=== PATIENT | female | born 1995 | race Caucasian/White ===

== ENCOUNTER 2024-08-21 09:05 | Emergency (ER) | payer OTHER ==
[~2024-08-21] VITALS: Ht 170.2 cm; Wt 76.9 kg
[2024-08-21 09:50] LABS: BASO # 0.1 10^3/uL (0.0-0.2); BASO % 0.8 % (0.0-1.0); EOS # 0.2 10^3/uL (0.0-0.5); EOS % 3.7 % (0.0-3.0); HEMATOCRIT 40.8 % (36.0-47.0); HEMOGLOBIN 13.8 g/dl (12.0-15.5); LYMPH # 1.8 10^3/uL (1.5-5.0); LYMPH % 29.7 % (24.0-44.0); MEAN CORPUSCULAR HEMOGLOBIN 30.7 pg (27.0-33.0); MEAN CORPUSCULAR HGB CONC 33.8 g/dl (32.0-36.5); MEAN CORPUSCULAR VOLUME 90.9 fl (80.0-96.0); MONO # 0.5 10^3/uL (0.0-0.8); MONO % 8.4 % (2.0-8.0); NEUTROPHILS # 3.5 10^3/uL (1.5-8.5); NEUTROPHILS % 57.1 % (36.0-66.0); PLATELET COUNT, AUTOMATED 210 10^3/uL (150-450); RED BLOOD COUNT 4.49 10^6/uL (4.00-5.40); WHITE BLOOD COUNT 6.2 10^3/uL (4.0-10.0)
[2024-08-21 10:13] LABS: ALBUMIN 4.2 G/DL (3.2-5.2); ALKALINE PHOSPHATASE 46 U/L (35-104); ALT/SGPT 49 U/L (7.0-40); AST/SGOT 31 U/L (<34); BILIRUBIN,DIRECT 0.2 MG/DL (<0.4); BILIRUBIN,TOTAL 0.6 MG/DL (0.3-1.2); BLOOD UREA NITROGEN 19 MG/DL (9-23); CALCIUM LEVEL 9.5 MG/DL (8.5-10.1); CARBON DIOXIDE LEVEL 28 MMOL/L (20-31); CHLORIDE LEVEL 107 MMOL/L (98-107); CREATININE FOR GFR 0.84 MG/DL (0.55-1.30); GLOMERULAR FILTRATION RATE > 90.0 (>60); GLUCOSE, FASTING 101 MG/DL (60-100); POTASSIUM SERUM 4.3 MMOL/L (3.5-5.1); SODIUM LEVEL 141 MMOL/L (136-145); TOTAL PROTEIN 7.2 G/DL (5.7-8.2)
[2024-08-21 10:17] LABS: HCG, SERUM QUALITATIVE NEGATIVE (NEGATIVE)
[2024-08-21 11:38] VITALS: TEMP 97.4
[2024-08-21 14:32] LABS: GC DNA AMPLIFICATION NEGATIVE (NEGATIVE)
[2024-08-21 14:59] VITALS: BP 140/94; O2SAT 98
== END 2024-08-21 15:01 | disposition home or self-care (01) ==
LOC: M ED 09:05
DX: N93.9 Abnormal uterine and vaginal bleeding, unspecified (principal); N94.6 Dysmenorrhea, unspecified